=== PATIENT | male | born 1985 | race African-American/Black ===

== ENCOUNTER 2017-02-03 14:43 | Emergency (ER) | payer MEDICARE, MEDICAID ==
--- NOTE | 2017-02-03 15:34 | ED ---
Medical Screening - HPI Summary HPI Summary: 31M presents for lab draw to enter detox in [place]. He states that he uses cocaine, ETOH, and pain medication occasionally. He is moving to [place] to enter this 18 month detox program. He needs labs for hep a,b,c, hiv, and TB to be done prior to admission. Last use of ETOH was yesterday and pain medication was last week. - History of Current Complaint Chief Complaint: EDDetoxRequest Stated Complaint: DETOX SCREENING Time Seen by Provider: 02/03/17 15:14 PMH/Surg Hx/FS Hx/Imm Hx Cardiovascular History: Denies: Hx Hypertension Respiratory History: Denies: Hx Asthma Infectious Disease History: No Infectious Disease History: Denies: Traveled Outside the [place] in Last 30 Days - Family History Known Family History: Negative: Cardiac Disease - Social History Alcohol Use: Daily Substance Use Type: Reports: Cocaine, Heroin, Marijuana, Other Substance Use Comment - Amount & Last Used: percocet Smoking Status (MU): Light Every Day Tobacco Smoker Review of Systems Negative: Fever Negative: Chest Pain Negative: Shortness Of Breath All Other Systems Reviewed And Are Negative: Yes Physical Exam Triage Information Reviewed: Yes Vital Signs On Initial Exam: Initial Vitals Temp Pulse Resp BP Pulse Ox 98.3 F 75 16 142/85 100 02/03/17 14:52 02/03/17 14:52 02/03/17 14:52 02/03/17 14:52 02/03/17 14:52 Vital Signs Reviewed: Yes Appearance: Positive: Well-Appearing Skin: Positive: Warm, Dry Head/Face: Positive: Normal Head/Face Inspection Eyes: Positive: Normal, Conjunctiva Clear Respiratory/Lung Sounds: Positive: Clear to Auscultation, Breath Sounds Present Cardiovascular: Positive: Normal, RRR - [place] Coma Scale Coma Scale Total: 15 Diagnostics - Vital Signs Vital Signs Temp Pulse Resp BP Pulse Ox 02/03/17 14:52 98.3 F 75 16 142/85 100 - Laboratory Lab Statement: Any lab studies that have been ordered have been reviewed, and results considered in the medical decision making process. Course/Dx - Course Course Of Treatment: draw labs patient needed for detox. had no compliant at time. explained will take a couple days for results. patient understands and agrees with plan - Diagnoses Provider Diagnoses: Encounter for medical screening examination Discharge - Discharge Plan Condition: Good Disposition: HOME Referrals: No Primary Care Phys,NOPCP [Primary Care Provider] - Additional Instructions: Mr. Lawson labs were drawn at ED on 02/03/17 for Hep A, B, C, HIV and quantiferon gold TB
[2017-02-03 16:41] VITALS: BP 156/94
[2017-02-05 16:00] LABS: M tuberculosis by Quantiferon Negative (Negative); TB Ag minus Nil Result -0.01 IU/mL
== END 2017-02-03 16:39 | disposition home or self-care (01) ==
LOC: ED 14:43
DX: Z00.00 Encounter for general adult medical examination without abnormal findings (principal); F17.200 Nicotine dependence, unspecified, uncomplicated
CPT/HCPCS: 36415; 86480; 86703; 86706; 86708; 86803; 87340; 99281